=== PATIENT | male | born 1940 | race Caucasian/White ===

== ENCOUNTER → 2017-04-03 | Outpatient (CLI) | payer OTHER ==
[~2017-04-03] MED LIST: ALLO300T PO; AMLO10TA2 PO; AMLO2.5T PO; CLON0.1T PO; LISI-167 PO; NAPR500T8 PO; POTA20TA14 PO; SUCR1ORA11 PO
== END | disposition home or self-care (01) ==
LOC: CFH 08:27
PROVIDERS: ATTEND Neurological Surgery
DX: M50.30 Other cervical disc degeneration, unspecified cervical region (principal); M51.34 Other intervertebral disc degeneration, thoracic region; M46.83 Other specified inflammatory spondylopathies, cervicothoracic region; M48.02 Spinal stenosis, cervical region; I82.411 Acute embolism and thrombosis of right femoral vein; I82.433 Acute embolism and thrombosis of popliteal vein, bilateral; G89.29 Other chronic pain
CPT/HCPCS: 72141; 72146; 93970

== ENCOUNTER 2021-06-23 05:58 | Inpatient (IN) | payer MEDICARE, MEDICAID ==
[~2021-06-23] VITALS: Ht 182.9 cm; Wt 119.5 kg
[~2021-06-23 05:58] MED LIST changes: +ACET325T14 PO; +ALBU2.5V11 NEB; +AMLO-210 PO; +AMLO-211 PO; -AMLO10TA2 PO; -AMLO2.5T PO; +AMLO2.5T5 PO; +BISA10SU54 PR; +CALC600T23 PO; -CLON0.1T PO; +CLON0.1T22 PO; +DEXT38GE2 PO; +DIVA125C2 PO; +DOXA1TAB2 PO; +GABA100C PO; +GLIP5TAB10 PO; +HYDR-3342 PO; +LEVO50TA5 PO; +MAGN400O7 PO; +NA P133E2 RC; -SUCR1ORA11 PO; +SUCR1ORA14 PO; +THIA500T PO; +WARF3TAB52 PO
[2021-06-23] MEDS ORDERED: SODIUM CHLORIDE FLUSH 10ML SYR IVF ONE ×2 (06:00→07:00)
--- NOTE | 2021-06-23 06:18 | NUR ---
BIB EMS from [place] for low HR in the 35-40 range. Ruben stated that pt had low BG yesterday and when they went to recheck his BG this AM they noticed the low HR. BG for [facility] was 120. Placed on all monitors and pacer, pt temp is 94.5 rectally. notified. Pt has no complaints and is asymptomatic. PIV 24G in L AC placed by sending facility. Pt A&Ox4, WCTM.
[2021-06-23] MEDS ORDERED: SODIUM CHLORIDE 0.9% 1,000ML IVBOLUS ONE (07:00)
--- NOTE | 2021-06-23 07:14 | NUR ---
RECEIVED BEDSIDE REPORT FROM CYRIL LIVINGSTON. CARE ASSUMED. PT A&OX4. DENIES ANY PAIN, CP, GORE, DIZZINESS, N/V/D. REPOSITION FOR COMFORT. CONT PULSE OX, BP, CARDIAC MONITORS IN PLACE, WELL CARDIAC PACER PADS PER ERP ORDER. SB ON MONITOR RATE 30-43. ERP AWARE OF HR AND VITALS, NO NEW ORDERS RECEIVED. PT WITH LOW TEMP, ERP AWARE, NO NEW ORDERS RECEIVED, WARM BLANKETS IN PLACE. VITALS OTHERWISE STABLE. PT TO BE ADMITTED, AWAITING ROOM ASSIGNMENT ON FLOOR. CALL LIGHT IN REACH. FALL PRECAUTIONS IN PLACE. SIDE RAILS UPX2. DENIES NEED TO USE RESTROOM.
--- NOTE | 2021-06-23 07:18 | NUR ---
PER ERP DR. HENNING, BLOOD CULTURES TO BE DRAWN PRIOR TO ANTIBIOTIC ADMIN. LAB NOTIFIED.
--- NOTE | 2021-06-23 07:21 | NUR ---
LAB AT BEDSIDE
[2021-06-23 07:29] LABS: BASOPHILS % (AUTO) 1 % (0-1); EOSINOPHILS % (AUTO) 1 % (1-7); LYMPHOCYTES % (AUTO) 10 % (22-44); MEAN CORPUSCULAR HEMOGLOBIN 31.6 pg (27.5-34.5); MEAN CORPUSCULAR HGB CONC 32.9 g/dL (33.2-36.2); MEAN PLATELET VOLUME 10.2 fL (7.4-10.4); MONOCYTES % (AUTO) 14 % (2-9); NEUTROPHILS % (AUTO) 73 % (42-75); PLATELET COUNT 102 x10^3/uL (130-400); RED BLOOD COUNT 3.47 x10^6/uL (4.38-5.82); RED CELL DISTRIBUTION WIDTH 19.8 % (9.4-14.8)
[2021-06-23] MEDS ORDERED: PIPERACILLIN/TAZO 3.375 GM in DEXTROSE 5% 50 ML IVPB ONE (07:30)
[2021-06-23 07:36] LABS: INTERNATIONAL NORMALIZED RATIO 3.29 (0.93-1.1); PROTHROMBIN TIME 33.3 Seconds (9.6-11.5)
[2021-06-23 07:38] LABS: ALANINE AMINOTRANSFERASE 18 U/L (12-78); ALBUMIN 2.3 g/dL (3.4-5.0); ANION GAP 7 mmol/L (5-15); CHLORIDE 101 mmol/L (98-107); CREATININE 2.16 mg/dL (0.7-1.3)
[2021-06-23 07:42] LABS: ALKALINE PHOSPHATASE 92 U/L (45-117); BILIRUBIN,TOTAL 0.3 mg/dL (0.2-1.0); TOTAL PROTEIN 7.2 g/dL (6.4-8.2); TROPONIN I < 0.015 ng/mL (0.000-0.045)
--- NOTE | 2021-06-23 08:44 | NUR ---
PT RESTING IN POSITION OF COMFORT. DENIES ANY PAIN AND NEED TO USE RESTROOM. SB ON MONITOR, RATE 30-40. CONTINUES TO BE ASYMPTOMATIC. VSS. IV ANTIBIOTIC INFUSING ON IV PUMP PER MD ORDER. VERIFIED BLOOD CULTURES DRAWNX2 PRIOR TO ADMIN. CALL LIGHT IN REACH. FALL PRECAUTIONS IN PLACE. AWAITING ROOM ON FLOOR.
--- NOTE | 2021-06-23 09:35 | NUR ---
RESTING COMFORTABLY. NO CHANGES. IV ANTIBIOTICS COMPLETED. AWAITING ROOM ON FLOOR. VSS. REMAINS BRADYCARDIAC. TEMP UNCHANGED, ERP,AWARE, NO NEW ORDERS RECEIVED. WARM BLANKETS IN PLACE WITH BEAR PAW WARMER. CALL LIGHT IN REACH. FALL PRECAUTIONS IN PLACE
--- NOTE | 2021-06-23 10:40 | NUR ---
PT RESTING IN POSITION OF COMFORT. DENIES ANY PAIN AND NEED TO USE RESTROOM. VSS, REMAINS MELANIE ON MONITOR. CALL LIGHT IN REACH. FALL PRECAUTIONS IN PLACE. WILL CONTINUE TO MONITOR,
--- NOTE | 2021-06-23 11:47 | NUR ---
ROOM 512 RECEIVED, VERBAL REPORT TO DAVID LIVINGSTON. DAVID REQUESTING COVID TEST PRIOR TO TRANSER TO FLOOR, DISCUSSED WITH DR. HENNING, ORDERS RECEIVED. TO COLLECT SWAB. DISCUSSED WITH DRINK BOX MECHANICMIKI MORALES AND FLOOR MIKI HERNANDEZ, PT CLEARED TO GO TO FLOOR AT THIS TIME.
--- NOTE | 2021-06-23 12:25 | NUR ---
ALL NEEDS MET AND ADDRESSED, AWAITING TRANSPORT TO FLOOR. VSS. CALL LIGHT IN REACH. FALL PRECAUTIONS IN PLACE. COVID SWAB COLLECTED AND WALKED TO LAB AT 1155
[2021-06-23 13:00] VITALS: BP 112/65
[2021-06-23] MEDS ORDERED: GUAIFENESIN/DM 200-20MG, 10ML UDC PO PRN (14:00)
[2021-06-23] MEDS ORDERED: ACETAMINOPHEN 325 MG TABLET PO PRN (14:00)
[2021-06-23] MEDS ORDERED: ONDANSETRON ODT 4 MG PO PRN (14:00)
[2021-06-23] MEDS ORDERED: hydrALAzine 20 MG/ML, 1ML IVPush PRN (14:00)
[2021-06-23] MEDS ORDERED: ENALAPRILAT 1.25 MG/ML, 2ML IVPush PRN (14:00)
[2021-06-23] MEDS ORDERED: POLYETHYLENE GLYCOL 17 GM PACKET PO PRN (14:00)
[2021-06-23] MEDS ORDERED: ONDANSETRON 2MG/ML, 2ML IVPush PRN (14:00)
[2021-06-23] MEDS ORDERED: MELATONIN 5 MG TABLET PO PRN (14:00)
[2021-06-23] MEDS ORDERED: DOCUSATE 100 MG CAPSULE PO PRN (14:00)
[2021-06-23] MEDS: SODIUM CHLORIDE 0.9% 1,000 ML IV SCH (14:40)
[2021-06-23] MEDS: HEPARIN 5,000 UNITS/ML, 1ML SQ SCH (14:40)
[2021-06-23 15:06] LABS: T4 (THYROXINE) 9.7 mcg/dL (4.5-12.1)
[2021-06-23 16:41] VITALS: BP 131/68
[2021-06-23] MEDS ORDERED: GLUCAGON 1 MG IM PRN (17:00)
[2021-06-23] MEDS ORDERED: DEXTROSE 4 GM TAB.CHEW PO PRN (17:00)
[2021-06-23] MEDS ORDERED: PHARMACY MAY ADJ FOR RENAL FX MC SCH (17:00)
[2021-06-23] MEDS ORDERED: DEXTROSE 50%, 50ML SYRINGE IVPush PRN (17:00)
[2021-06-23] MEDS ORDERED: SODIUM CHLORIDE 0.9% 1,000ML IV ONE (18:00)
[2021-06-23] MEDS ORDERED: DEXTROSE 5% 1,000 ML IV SCH ×2 (18:00→18:30)
[2021-06-23] MEDS: PIPERACILLIN/TAZO 3.375 GM in DEXTROSE 5% 50 ML IV SCH (18:32)
[2021-06-23 20:23] VITALS: BP 136/65
[2021-06-23] MEDS: ALBUTEROL HFA 90 MCG/SPRAY INH SCH (20:49)
[2021-06-23] MEDS: SODIUM CHLORIDE FLUSH 10ML SYR IVF SCH (21:05)
[2021-06-24 00:10] VITALS: BP 135/66
[2021-06-24] MEDS: PIPERACILLIN/TAZO 3.375 GM in DEXTROSE 5% 50 ML IV SCH ×3 (00:32→11:33)
[2021-06-24] MEDS: ALBUTEROL HFA 90 MCG/SPRAY INH SCH ×6 (00:39→20:04)
[2021-06-24] MEDS: HEPARIN 5,000 UNITS/ML, 1ML SQ SCH ×2 (02:48→16:22)
[2021-06-24 05:43] LABS: BASOPHILS % (AUTO) 1 % (0-1); EOSINOPHILS % (AUTO) 2 % (1-7); LYMPHOCYTES % (AUTO) 14 % (22-44); MEAN CORPUSCULAR HEMOGLOBIN 31.4 pg (27.5-34.5); MEAN CORPUSCULAR HGB CONC 32.7 g/dL (33.2-36.2); MEAN PLATELET VOLUME 11.3 fL (7.4-10.4); MONOCYTES % (AUTO) 12 % (2-9); NEUTROPHILS % (AUTO) 72 % (42-75); PLATELET COUNT 123 x10^3/uL (130-400); RED BLOOD COUNT 3.39 x10^6/uL (4.38-5.82); RED CELL DISTRIBUTION WIDTH 19.6 % (9.4-14.8)
[2021-06-24 05:54] LABS: ANION GAP 5 mmol/L (5-15); CALCIUM 8.9 mg/dL (8.5-10.1); CHLORIDE 107 mmol/L (98-107); CREATININE 2.09 mg/dL (0.7-1.3)
[2021-06-24 06:07] VITALS: BP 116/65
[2021-06-24] MEDS: SODIUM CHLORIDE FLUSH 10ML SYR IVF SCH ×2 (09:06→20:05)
[2021-06-24] MEDS: SODIUM CHLORIDE 0.9% 1,000 ML IV SCH (09:06)
[2021-06-24] MEDS ORDERED: SODIUM POLYSTYRENE SULFONATE ORAL SUSP PO ONE (10:00)
[2021-06-24 13:09] VITALS: BP 145/63
[2021-06-24 20:00] VITALS: BP 120/68
[2021-06-24] MEDS: PIPERACILLIN/TAZO 2.25 GM in DEXTROSE 5% 50 ML IV SCH (20:04)
[2021-06-25 01:12] VITALS: BP 145/78
[2021-06-25] MEDS: ALBUTEROL HFA 90 MCG/SPRAY INH SCH ×6 (01:33→21:00)
[2021-06-25] MEDS: PIPERACILLIN/TAZO 2.25 GM in DEXTROSE 5% 50 ML IV SCH ×4 (01:34→20:52)
[2021-06-25] MEDS: HEPARIN 5,000 UNITS/ML, 1ML SQ SCH ×2 (04:37→16:37)
[2021-06-25 05:11] LABS: ANION GAP 6 mmol/L (5-15); CALCIUM 8.9 mg/dL (8.5-10.1); CHLORIDE 108 mmol/L (98-107)
[2021-06-25 05:17] LABS: BASOPHILS % (AUTO) 3 % (0-1); EOSINOPHILS % (AUTO) 3 % (1-7); LYMPHOCYTES % (AUTO) 28 % (22-44); MEAN CORPUSCULAR HEMOGLOBIN 31.6 pg (27.5-34.5); MEAN CORPUSCULAR HGB CONC 32.9 g/dL (33.2-36.2); MEAN PLATELET VOLUME 10.3 fL (7.4-10.4); MONOCYTES % (AUTO) 19 % (2-9); NEUTROPHILS % (AUTO) 47 % (42-75); PLATELET COUNT 152 x10^3/uL (130-400); RED BLOOD COUNT 3.36 x10^6/uL (4.38-5.82); RED CELL DISTRIBUTION WIDTH 19.6 % (9.4-14.8)
[2021-06-25 06:35] VITALS: BP 142/73
[2021-06-25] MEDS: SODIUM CHLORIDE FLUSH 10ML SYR IVF SCH ×2 (09:09→20:52)
[2021-06-25 12:05] VITALS: BP 136/73
[2021-06-25 19:57] VITALS: BP 147/77
[2021-06-26] MEDS: ALBUTEROL HFA 90 MCG/SPRAY INH SCH ×3 (01:00→07:24)
[2021-06-26] MEDS: PIPERACILLIN/TAZO 2.25 GM in DEXTROSE 5% 50 ML IV SCH ×2 (02:13→07:24)
[2021-06-26 02:38] VITALS: BP 156/71
[2021-06-26] MEDS: HEPARIN 5,000 UNITS/ML, 1ML SQ SCH (04:54)
[2021-06-26 06:35] VITALS: BP 164/75
[2021-06-26] MEDS: SODIUM CHLORIDE FLUSH 10ML SYR IVF SCH (07:24)
[2021-06-26] MEDS ORDERED: HYDR-3342 PO (08:24)
[2021-06-26] MEDS ORDERED: WARF3TAB52 PO (08:24)
[2021-06-26] MEDS ORDERED: LACT1TAB13 PO (08:36)
[2021-06-26] MEDS ORDERED: AMOX1TAB61 PO (08:36)
[2021-06-26 08:50] LABS: INTERNATIONAL NORMALIZED RATIO 2.15 (0.93-1.1); PROTHROMBIN TIME 22.2 Seconds (9.6-11.5)
[2021-06-26] MEDS ORDERED: DIVALPROEX 125 MG CAP.SPRINK PO SCH (09:00)
[2021-06-26] MEDS ORDERED: ALLOPURINOL 100 MG TABLET PO SCH (09:00)
[2021-06-26] MEDS ORDERED: GABAPENTIN 100 MG CAPSULE PO SCH (09:00)
[2021-06-26] MEDS ORDERED: LEVOTHYROXINE 50 MCG TABLET PO SCH (09:00)
[2021-06-26] MEDS ORDERED: WARFARIN 3 MG TABLET PO-COUM SCH (21:00)
[2021-06-26] MEDS ORDERED: DOXAZOSIN 1MG TABLET PO SCH (21:00)
== END 2021-06-26 13:23 | DRG 871 ==
LOC: ED 06:14 → EDIP 09:03 → 5SO 13:00
PROVIDERS: ADMIT Hospitalist; ATTEND Internal Medicine
DX: A41.9 Sepsis, unspecified organism (principal); J18.9 Pneumonia, unspecified organism; N17.0 Acute kidney failure with tubular necrosis; J96.11 Chronic respiratory failure with hypoxia; I13.0 Hypertensive heart and chronic kidney disease with heart failure and stage 1 through stage 4 chronic kidney disease, or unspecified chronic kidney disease; I50.32 Chronic diastolic (congestive) heart failure; N18.4 Chronic kidney disease, stage 4 (severe); M10.9 Gout, unspecified; Z79.01 Long term (current) use of anticoagulants; R00.1 Bradycardia, unspecified; Z20.822 Contact with and (suspected) exposure to COVID-19; I48.0 Paroxysmal atrial fibrillation; Z87.891 Personal history of nicotine dependence; D64.9 Anemia, unspecified; D69.6 Thrombocytopenia, unspecified; E11.22 Type 2 diabetes mellitus with diabetic chronic kidney disease; Z66 Do not resuscitate; E03.2 Hypothyroidism due to medicaments and other exogenous substances; E66.01 Morbid (severe) obesity due to excess calories; Z68.35 Body mass index [BMI] 35.0-35.9, adult; I27.20 Pulmonary hypertension, unspecified; R62.7 Adult failure to thrive
CPT/HCPCS: 36415; 36600; 71045; 80048; 80053; 82803; 82962; 83605; 83880; 84145; 84436; 84481; 84484; 85025; 85610; 87040; 93005; 96361; 96365; 99291; G0378; J1644; J2543; J7070; U0005; J7030; U0003